=== PATIENT | male | born 1985 | race Caucasian/White ===

== ENCOUNTER 2021-10-24 10:57 | Emergency (ER) | payer OTHER ==
[2021-10-24] MEDS ORDERED: fentaNYL 100 MCG/2 ML SDV IVPUSH STA (11:21)
[2021-10-24] MEDS ORDERED: Ondansetron 4 MG/2 ML SDV IVPUSH ONE (11:22)
[2021-10-24] MEDS ORDERED: LORazepam 2 MG/ML SDV IVPUSH ONE (12:05)
[2021-10-24] MEDS ORDERED: fentaNYL 100 MCG/2 ML SDV IVPUSH ONE (12:32)
== END 2021-10-24 13:30 ==
LOC: FB.ED 10:57
DX: S22.080A Wedge compression fracture of T11-T12 vertebra, initial encounter for closed fracture (principal); S52.571A Other intraarticular fracture of lower end of right radius, initial encounter for closed fracture; S52.572A Other intraarticular fracture of lower end of left radius, initial encounter for closed fracture; W11.XXXA Fall on and from ladder, initial encounter
CPT/HCPCS: 36415; 72072; 72100; 73090-50; 80053; 85025; 96374; 96375; 96376; 99284; 99285-25; J2060; J2405; J3010